=== PATIENT | female | born 1980 | race Caucasian/White ===

== ENCOUNTER 2016-08-12 22:31 | Emergency (ER) | payer MEDICAID ==
[2016-08-12] MEDS ORDERED: Ketorolac 60 MG/2 ML SDV IM ONE (23:36)
[2016-08-13] MEDS ORDERED: Ciprofloxacin in D5W 400 MG in Premix Bag 1 BAG IV ONE ×2 (01:51)
[2016-08-13] MEDS ORDERED: HYDROmorphone 1 MG/ML Syringe IVPUSH ONE (01:52)
[2016-08-13] MEDS ORDERED: diphenhydrAMINE 50 MG/ML SDV IVPUSH ONE ×2 (01:53→01:54)
[2016-08-13] MEDS ORDERED: LORazepam 2 MG/ML MDV IVPUSH ONE (01:53)
[2016-08-13] MEDS ORDERED: Lactated Ringers 1,000 ML IV SCH (02:00)
--- NOTE | 2016-08-13 03:22 | EDM.PDOC ---
ED HPI GI/ABDOMINAL - General Chief Complaint: Abdominal Pain Stated Complaint: ABD PAINS Time Seen by Provider: 08/12/16 23:09 Source: Reports: Patient History Limitations: Reports: No limitations - History of Present Illness INITIAL COMMENTS - FREE TEXT/NARRATIVE: History of present illness: [36-year-old female presenting with left flank pain and a little nausea. She also complains of some erythema of her skin which she attributes to being exposed to a bug bomb which was used to for an infestation of insects in her home. Her boyfriend presented with some similar complaints. Thoroughly reviewed her records and also [place] prescription monitoring site. She's had no fever or nausea or vomiting constipation diarrhea or dysuria ] Review of systems: As per history of present illness and below otherwise all systems reviewed and negative. Past medical history: As per history of present illness and as reviewed below otherwise noncontributory. Surgical history: As per history of present illness and as reviewed below otherwise noncontributory. Family history: As per history of present illness and as reviewed below otherwise noncontributory. Physical exam: She is dramatic and demanding and alleges she is in severe pain and spent much of her visit here crying immaturely. Her BMI is 44.9. She is difficult to assess HEENT: Atraumatic, normocephalic, pupils reactive, negative for conjunctival pallor or scleral icterus, mucous membranes moist, throat clear, neck supple, nontender, trachea midline. Lungs: Clear to auscultation, breath sounds equal bilaterally, chest nontender. Heart: S1S2, regular, negative for clicks, rubs, or JVD. Abdomen: Abdomen is rotund with tenderness to palpation in the left lower quadrant bowel sounds are present. Pelvis: Stable nontender. Genitourinary: Deferred. Rectal: Deferred. Extremities: Atraumatic, negative for cords or calf pain. Neurovascular unremarkable. Neuro: Awake, alert, oriented. Exam nonfocal. Diagnostics: [She was thoroughly worked up with CBC complete metabolic panel UA and abdominal pelvic CT. The abdominal pelvic CT was normal urinalysis suggests a urinary tract infection. This was cultured] Therapeutics: [She received many medications to try to control her pain. This included Toradol Benadryl Ativan Dilaudid and IV fluids. She was also given IV Cipro. She finally fell asleep and when aroused her she finally agreed to go home. She is on many medications and needs to go home and continue her meds.] Impression: [Left lower quadrant abdominal pain of uncertain etiology] Plan: [I'm advising her to followup with her primary doctor if her pain persists] Definitive disposition and diagnosis as appropriate pending reevaluation and review of above. - Related Data Allergies/ADRs: Allergies Allergy/AdvReac Type Severity Reaction Status Date / Time guaifenesin [From Robitussin] Allergy Intermediate Hives Verified 06/01/16 16:00 ibuprofen Allergy Intermediate Hives Verified 06/01/16 16:00 naproxen Allergy Intermediate Hives Verified 06/01/16 16:00 hydrocodone Allergy Itching Verified 06/01/16 16:00 gabapentin AdvReac Nausea and Verified 06/01/16 16:00 Vomiting Home Meds: Home Meds ALPRAZolam [Xanax] 0.5 mg PO TID 05/17/15 [History] Eszopiclone 1 mg PO BEDTIME 05/17/15 [History] rOPINIRole HCl [Ropinirole HCl] 1 tab PO TID 05/17/15 [History] Cyclobenzaprine [Flexeril] 10 mg PO TID 11/30/15 [History] Pregabalin [Lyrica] 75 mg PO BEDTIME 11/30/15 [History] Ramelteon [Rozerem] 16 mg PO BEDTIME PRN 11/30/15 [History] DULoxetine HCl [Duloxetine HCl] 90 mg PO DAILY 03/06/16 [History] Prazosin [Minpress] 3 mg PO BEDTIME 03/06/16 [History] Albuterol Sulfate [Proair Hfa] 2 inhalation IH Q6H PRN 04/03/16 [History] Lisdexamfetamine [Vyvanse] 70 mg PO DAILY 04/03/16 [History] Past Medical History HEENT History: Reports: Impaired vision Respiratory History: Reports: Asthma, Pneumonia, recurrent Genitourinary History: Reports: UTI, recurrent 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: , 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 , 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 Other OB/BYN History: states 15 pregnancies 4 live children Musculoskeletal History: Reports: Fibromyalgia, Osteoarthritis, Other (see below ) Other Musculoskeletal History: chronic L knee, degenerative bone disease Neurological History: Reports: Concussion, Head trauma, Migraines Psychiatric History: Reports: Anxiety, Depression, Emotional problems, Learning disability, Mood swings, Panic attack, Suicidal ideation, Other (see below) Other Psychiatric History: bulemic Endocrine/Metabolic History: Reports: Obesity/BMI 30+, Other (see below) Other Endocrine/Metabolic History: Hypoglycemic Hematologic History: Reports: Bleeding disorder - Infectious Disease History Infectious Disease History: Reports: Chicken pox - Past Surgical History Female Surgical History: Reports: D&C, Tubal ligation Other Musculoskeletal Surgeries/Procedures:: Knee surgery, ankle surgery, l wrist Social & Family History - Family History Psychiatric: Reports: ADHD - Tobacco Use Smoking Status *Q: Current Some Day Smoker Years of Tobacco use: 10 Packs/Tins Daily: 0.2 Used Tobacco, but Quit: Yes Month Tobacco Last Used: april Second Hand Smoke Exposure: No - Caffeine Use Caffeine Use: Reports: None - Alcohol Use Days Per Week of Alcohol Use: 0 - Recreational Drug Use Recreational Drug Use: No Drug Use in Last 12 Months: Yes Recreational Drug Type: Reports: Marijuana/Hashish ED ROS GENERAL - Review of Systems Review Of Systems: ROS reveals no pertinent complaints other than HPI. ED EXAM, GI/ABD - Physical Exam Exam: See Below Course - Vital Signs Last Recorded V/S: Last Vital Signs Temp 36.5 C 08/12/16 22:49 Pulse 69 08/13/16 01:46 Resp 16 08/13/16 01:46 BP 124/71 08/13/16 01:46 Pulse Ox 97 08/13/16 01:46 - Orders/Labs/Meds Orders: Active Orders 24 hr Category Date Time Status Abdomen Pelvis wo Cont [CT] Stat Exams 08/12/16 23:37 Taken CULTURE URINE [RM] Stat Lab 08/13/16 01:50 Uncollected Lactated Ringers [Ringers, Lactated] 1,000 ml Med 08/13/16 02:00 Active IV ASDIRECTED Medication Orders Lactated Ringer's (Ringers, Lactated) 1,000 mls @ 500 mls/hr IV ASDIRECTED TAYA Last Admin: 08/13/16 02:13 Dose: 500 mls/hr Labs: Laboratory Tests 08/12/16 08/12/16 08/13/16 Range/Units 23:24 23:24 01:29 WBC 10.2 (4.5-11.0) K/uL RBC 4.21 (3.30-5.50) M/uL Hgb 12.8 (12.0-15.0) g/dL Hct 38.6 (36.0-48.0) % MCV 92 (80-98) fL MCH 30 (27-31) pg MCHC 33 (32-36) % Plt Count 250 (150-400) K/uL Neut % (Auto) 65 (36-66) % Lymph % (Auto) 27 (24-44) % Alexander % (Auto) 7 H (2-6) % Eos % (Auto) 1 L (2-4) % Baso % (Auto) 1 (0-1) % Sodium 140 (140-148) mmol/L Potassium 3.2 L (3.6-5.2) mmol/L Chloride 102 (100-108) mmol/L Carbon Dioxide 29 (21-32) mmol/L Anion Gap 12.2 (5.0-14.0) mmol/L BUN 20 H (7-18) mg/dL Creatinine 0.9 (0.6-1.0) mg/dL Est Cr Clr Drug Dosing 61.47 mL/min Estimated GFR (MDRD) > 60 (>60) Glucose 89 (74-106) mg/dL Calcium 8.4 L (8.5-10.1) mg/dL Total Bilirubin 0.8 D (0.2-1.0) mg/dL AST 13 L (15-37) U/L ALT 23 (12-78) U/L Alkaline Phosphatase 79 (46-116) U/L C-Reactive Protein 0.29 (0.0-0.3) mg/dL Total Protein 7.7 (6.4-8.2) g/dL Albumin 3.8 (3.4-5.0) g/dL Globulin 3.9 H (2.3-3.5) g/dL Albumin/Globulin Ratio 1.0 L (1.2-2.2) Amylase 43 (25-115) U/L Lipase 110 (73-393) U/L Urine Color Yellow Urine Appearance Cloudy Urine pH 5.0 (4.5-8.0) Ur Specific [place] 1.030 (1.008-1.030) Urine Protein Negative (NEGATIVE) mg/dL Urine Glucose (UA) 250 H (NEGATIVE) mg/dL Urine Ketones 50 H (NEGATIVE) mg/dL Urine Occult Blood Negative (NEGATIVE) Urine Nitrite Negative (NEGATIVE) Urine Bilirubin Negative (NEGATIVE) Urine Urobilinogen Normal (NORMAL) mg/dL Ur Leukocyte Esterase Moderate (NEGATIVE) Urine RBC 0-5 (0-5) Urine WBC 10-20 H (0-5) Ur Epithelial Cells Moderate Amorphous Sediment Not seen Urine Bacteria Many Urine Mucus Moderate Meds: Medications Generic Name Dose Route Start Last Admin Trade Name Freq PRN Reason Stop Dose Admin Lactated Ringer's 1,000 mls @ 500 mls/hr 08/13/16 02:00 08/13/16 02:13 Ringers, Lactated IV 500 mls/hr ASDIRECTED TAYA Administration Discontinued Medications Generic Name Dose Route Start Last Admin Trade Name Freq PRN Reason Stop Dose Admin Diphenhydramine HCl 50 mg 08/13/16 01:53 Benadryl IVPUSH 08/13/16 01:54 ONETIME ONE Diphenhydramine HCl 25 mg 08/13/16 01:54 08/13/16 02:24 Benadryl IVPUSH 08/13/16 01:55 25 mg ONETIME ONE Administration Hydromorphone HCl 1 mg 08/13/16 01:52 08/13/16 02:28 Dilaudid IVPUSH 08/13/16 01:53 1 mg ONETIME ONE Administration Ciprofloxacin/Dextrose 400 mg/ 200 mls @ 200 mls/hr 08/13/16 01:51 08/13/16 02:15 Premix IV 08/13/16 02:50 200 mls/hr ONETIME ONE Administration Ketorolac Tromethamine 60 mg 08/12/16 23:36 08/12/16 23:42 Toradol IM 08/12/16 23:37 60 mg ONETIME ONE Administration Lorazepam 1 mg 08/13/16 01:53 08/13/16 02:17 Ativan IVPUSH 08/13/16 01:54 1 mg ONETIME ONE Administration Departure - Departure Time of Disposition: 03:22 Disposition: Home, Self-Care 01 Condition: good Clinical Impression: Left lower quadrant abdominal pain of unknown etiology Forms: ED Department Discharge Additional Instructions: Please followup with your primary doctor if her pain and other problems persist. Continue your current medications - My Orders Last 24 Hours: My Active Orders 08/12/16 23:37 Abdomen Pelvis wo Cont [CT] Stat 08/13/16 01:50 CULTURE URINE [RM] Stat 08/13/16 02:00 Lactated Ringers [Ringers, Lactated] 1,000 ml IV ASDIRECTED - Assessment/Plan Last 24 Hours: My Active Orders 08/12/16 23:37 Abdomen Pelvis wo Cont [CT] Stat 08/13/16 01:50 CULTURE URINE [RM] Stat 08/13/16 02:00 Lactated Ringers [Ringers, Lactated] 1,000 ml IV ASDIRECTED
[2016-08-13 03:58] VITALS: BP 117/79
== END 2016-08-13 03:36 | disposition home or self-care (01) ==
LOC: JP.ED 22:31
DX: R10.32 Left lower quadrant pain (principal); J45.909 Unspecified asthma, uncomplicated; F41.0 Panic disorder [episodic paroxysmal anxiety]; F32.9 Major depressive disorder, single episode, unspecified; F17.210 Nicotine dependence, cigarettes, uncomplicated; E66.9 Obesity, unspecified; Z68.41 Body mass index [BMI] 40.0-44.9, adult; Z98.890 Other specified postprocedural states; Z98.51 Tubal ligation status; Z79.899 Other long term (current) drug therapy; Z88.5 Allergy status to narcotic agent; Z88.8 Allergy status to other drugs, medicaments and biological substances
CPT/HCPCS: 36415; 74176; 80053; 81001; 82150; 83690; 85025; 86140; 96365; 96372; 96375; 99284; J0744; J1170; J1200; J1885; J2060; J7120

== ENCOUNTER 2016-12-05 17:02 | Emergency (ER) | payer MEDICAID ==
[2016-12-05 17:40] VITALS: BP 146/97
[2016-12-05] MEDS ORDERED: Acetaminophen 500 MG Tab PO ONE (18:12)
--- NOTE | 2016-12-05 18:18 | EDM.PDOC ---
ED HPI GENERAL MEDICAL PROBLEM - General Chief Complaint: Upper Extremity Injury/Pain Stated Complaint: R HAND INJURY Time Seen by Provider: 12/05/16 18:10 Source of Information: Reports: Patient, Old Records History Limitations: Reports: No Limitations - History of Present Illness INITIAL COMMENTS - FREE TEXT/NARRATIVE: 36 yo female hit a wall roughly an hour ago with her R hand. Now has pain to the knuckles of that hand. No tx prior to arrival. 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: Other (see below) (none) Right Hand Pain Score (Numeric/FACES): 7 - Related Data Allergies Allergy/AdvReac Type Severity Reaction Status Date / Time guaifenesin [From Robitussin] Allergy Intermediate Hives Verified 12/05/16 17:44 ibuprofen Allergy Intermediate Hives Verified 12/05/16 17:44 naproxen Allergy Intermediate Hives Verified 12/05/16 17:44 hydrocodone Allergy Itching Verified 12/05/16 17:44 gabapentin AdvReac Nausea and Verified 12/05/16 17:44 Vomiting Home Meds: Home Meds ALPRAZolam [Xanax] 0.5 mg PO TID 05/17/15 [History] Eszopiclone 1 mg PO BEDTIME 05/17/15 [History] rOPINIRole HCl [Ropinirole HCl] 1 tab PO TID 05/17/15 [History] Cyclobenzaprine [Flexeril] 10 mg PO TID 11/30/15 [History] Pregabalin [Lyrica] 75 mg PO BEDTIME 11/30/15 [History] Ramelteon [Rozerem] 16 mg PO BEDTIME PRN 11/30/15 [History] DULoxetine HCl [Duloxetine HCl] 90 mg PO DAILY 03/06/16 [History] Prazosin [Minpress] 3 mg PO BEDTIME 03/06/16 [History] Albuterol Sulfate [Proair Hfa] 2 inhalation IH Q6H PRN 04/03/16 [History] Lisdexamfetamine [Vyvanse] 70 mg PO DAILY 04/03/16 [History] Past Medical History HEENT History: Reports: Impaired Vision Respiratory History: Reports: Asthma, Pneumonia, Recurrent Genitourinary History: Reports: UTI, Recurrent 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: , 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 , 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 Other OB/BYN History: states 15 pregnancies 4 live children Musculoskeletal History: Reports: Fibromyalgia, Osteoarthritis, Other (See Below ) Other Musculoskeletal History: chronic L knee, degenerative bone disease Neurological History: Reports: Concussion, Head Trauma, Migraines Psychiatric History: Reports: Anxiety, Depression, Emotional Problems, Learning Disability, Mood Swings, Panic Attack, Suicidal Ideation, Other (See Below) Other Psychiatric History: bulemic Endocrine/Metabolic History: Reports: Obesity/BMI 30+, Other (See Below) Other Endocrine/Metabolic History: Hypoglycemic Hematologic History: Reports: Bleeding Disorder - Infectious Disease History Infectious Disease History: Reports: Chicken Pox - Past Surgical History Female Surgical History: Reports: D&C, Tubal Ligation Social & Family History - Family History Psychiatric: Reports: ADHD - Tobacco Use Smoking Status *Q: Current Every Day Smoker Years of Tobacco use: 24 Packs/Tins Daily: 0.2 Used Tobacco, but Quit: No Month Tobacco Last Used: april Second Hand Smoke Exposure: Yes - Caffeine Use Caffeine Use: Reports: Soda - Alcohol Use Days Per Week of Alcohol Use: 0 - Recreational Drug Use Recreational Drug Use: No Drug Use in Last 12 Months: Yes Recreational Drug Type: Reports: Marijuana/Hashish Review of Systems - Review of Systems Review Of Systems: See Below Constitutional: Reports: No Symptoms Musculoskeletal: Reports: Joint Pain, Joint Swelling, Other (3rd and 5th MC joints dorsally are slightly swollen and ecchymotic. No finger alignment anomalies with flexion at the affected joints. ) Skin: Reports: Bruising (Knuckles 3 and 5 of that R hand.) Neurological: Reports: No Symptoms ED EXAM, GENERAL - Physical Exam Exam: See Below Exam Limited By: No Limitations General Appearance: Alert, WD/WN, No Apparent Distress, Obese Extremities: Other (R hand full ROM. Skin intact. MC joints dorsally of 3rd and 5th joints are ecchymotic. ). No: Limited Range of Motion Neurological: Alert, Oriented, CN II-XII Intact, Normal Cognition, No Motor/ Sensory Deficits Psychiatric: Normal Affect, Normal Mood Course - Vital Signs Text/Narrative:: acetaminophen 1000 mg po R hand [id number] Last Recorded V/S: Last Vital Signs Temp 36.2 C 12/05/16 17:49 Pulse 86 12/05/16 17:49 Resp 16 12/05/16 17:49 BP 146/97 H 12/05/16 17:49 Pulse Ox 93 L 12/05/16 17:49 - Orders/Labs/Meds Orders: Active Orders 24 hr Category Date Time Status Hand Comp Min 3V Rt [CR] Stat Exams 12/05/16 18:13 Taken Meds: Medications Discontinued Medications Generic Name Dose Route Start Last Admin Trade Name Shashiq PRN Reason Stop Dose Admin Acetaminophen 1,000 mg 12/05/16 18:12 12/05/16 18:49 Tylenol Extra Strength PO 12/05/16 18:13 1,000 mg ONETIME ONE Administration Departure - Departure Time of Disposition: 19:15 Disposition: Home, Self-Care 01 Condition: Good Clinical Impression: Contusion of right hand Qualifiers: Encounter type: initial encounter Qualified Code(s): S60.221A - Contusion of right hand, initial encounter - Discharge Information Forms: ED Department Discharge - My Orders Last 24 Hours: My Active Orders 12/05/16 18:13 Hand Comp Min 3V Rt [CR] Stat - Assessment/Plan Last 24 Hours: My Active Orders 12/05/16 18:13 Hand Comp Min 3V Rt [CR] Stat
--- NOTE | 2016-12-06 09:38 | CR ---
Hand Comp Min 3V Rt FINDINGS: There is normal alignment. There are no fractures or posttraumatic findings. There are no significant degenerative changes. The soft tissues are unremarkable. IMPRESSION: Negative exam.
== END 2016-12-05 19:28 | disposition home or self-care (01) ==
LOC: JP.ED 17:02
DX: S60.221A Contusion of right hand, initial encounter (principal); J45.909 Unspecified asthma, uncomplicated; M19.90 Unspecified osteoarthritis, unspecified site; F41.9 Anxiety disorder, unspecified; F17.210 Nicotine dependence, cigarettes, uncomplicated; F32.9 Major depressive disorder, single episode, unspecified; E66.9 Obesity, unspecified; G43.909 Migraine, unspecified, not intractable, without status migrainosus; Z98.51 Tubal ligation status; Z87.01 Personal history of pneumonia (recurrent); Z79.899 Other long term (current) drug therapy; Z88.6 Allergy status to analgesic agent; Z88.5 Allergy status to narcotic agent; Z88.8 Allergy status to other drugs, medicaments and biological substances; W22.8XXA Striking against or struck by other objects, initial encounter
CPT/HCPCS: 73130; 99284; A9270

== ENCOUNTER 2017-01-08 01:33 | Emergency (ER) | payer MEDICAID ==
[2017-01-08 01:49] VITALS: BP 139/97
--- NOTE | 2017-01-08 02:20 | EDM.PDOC ---
ED HPI GENERAL MEDICAL PROBLEM - General Chief Complaint: Lower Extremity Injury/Pain Stated Complaint: RT KNEE AND BIG TOE HURT VERY BAD Time Seen by Provider: 01/08/17 02:17 Source of Information: Reports: Patient History Limitations: Reports: No Limitations - History of Present Illness INITIAL COMMENTS - FREE TEXT/NARRATIVE: This patient complains of anterior right knee pain. It's been going on all day long. She denies any trauma. The pain is in the area inferior to the right patella and just to the medial side of the midline. She says it hurts to bear weight. She walked 4 blocks coming to the [facility]. She also complains of a area to the ungual margin of her right great toenail that is keratinocyte but has turned black within the last day. She says it hurts very bad and even to put a sock on her foot is very painful right toe and right knee Pain Score (Numeric/FACES): 8 - Related Data Allergies Allergy/AdvReac Type Severity Reaction Status Date / Time guaifenesin [From Robitussin] Allergy Intermediate Hives Verified 01/08/17 01:49 ibuprofen Allergy Intermediate Hives Verified 01/08/17 01:49 naproxen Allergy Intermediate Hives Verified 01/08/17 01:49 hydrocodone Allergy Itching Verified 01/08/17 01:49 gabapentin AdvReac Nausea and Verified 01/08/17 01:49 Vomiting Home Meds: Home Meds ALPRAZolam [Xanax] 0.5 mg PO TID 05/17/15 [History] Eszopiclone 1 mg PO BEDTIME 05/17/15 [History] rOPINIRole HCl [Ropinirole HCl] 3 tab PO BEDTIME 05/17/15 [History] Cyclobenzaprine [Flexeril] 10 mg PO TID 11/30/15 [History] Pregabalin [Lyrica] 75 mg PO BEDTIME 11/30/15 [History] Ramelteon [Rozerem] 8 mg PO BEDTIME PRN 11/30/15 [History] DULoxetine HCl [Duloxetine HCl] 90 mg PO DAILY 03/06/16 [History] Prazosin [Minpress] 3 mg PO BEDTIME 03/06/16 [History] Lisdexamfetamine [Vyvanse] 70 mg PO DAILY 11/21/16 [History] Cyanocobalamin (Vitamin B-12) [B-12] 1,000 mcg PO DAILY 01/08/17 [History] Past Medical History HEENT History: Reports: Impaired Vision Respiratory History: Reports: Asthma, Pneumonia, Recurrent Genitourinary History: Reports: UTI, Recurrent 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: , 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 , 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 Other OB/BYN History: states 15 pregnancies 4 live children Musculoskeletal History: Reports: Fibromyalgia, Osteoarthritis, Other (See Below ) Other Musculoskeletal History: chronic L knee, degenerative bone disease Neurological History: Reports: Concussion, Head Trauma, Migraines Psychiatric History: Reports: Anxiety, Depression, Eating Disorders, Emotional Problems, Learning Disability, Mood Swings, Panic Attack, Suicidal Ideation, Other (See Below) Other Psychiatric History: bulemic Endocrine/Metabolic History: Reports: Obesity/BMI 30+, Other (See Below) Other Endocrine/Metabolic History: Hypoglycemic Hematologic History: Reports: Bleeding Disorder Dermatologic History: Reports: None - Infectious Disease History Infectious Disease History: Reports: Chicken Pox - Past Surgical History HEENT Surgical History: Reports: None Respiratory Surgical History: Reports: None Female Surgical History: Reports: D&C, Tubal Ligation Neurological Surgical History: Reports: None Musculoskeletal Surgical History: Reports: Arthroscopic Knee Social & Family History - Family History Psychiatric: Reports: ADHD - Tobacco Use Smoking Status *Q: Current Every Day Smoker Years of Tobacco use: 19 Packs/Tins Daily: 0.2 Used Tobacco, but Quit: No Month Tobacco Last Used: april Second Hand Smoke Exposure: Yes - Caffeine Use Caffeine Use: Reports: Soda - Alcohol Use Days Per Week of Alcohol Use: 0 - Recreational Drug Use Recreational Drug Use: No Drug Use in Last 12 Months: Yes Recreational Drug Type: Reports: Marijuana/Hashish Review of Systems - Review of Systems Review Of Systems: ROS reveals no pertinent complaints other than HPI. ED EXAM, GENERAL - Physical Exam Exam: See Below Exam Limited By: No Limitations General Appearance: Alert, WD/WN Eye Exam: Bilateral Eye: Normal Inspection Extremities: Other (there is no swelling to the right knee. There is some mild tenderness along the medial joint line anteriorly. There is good range of motion of the knee. On the right great toe the nail shows a verrucous looking lesion to the medial margin of the base of the nail. It looks like it has been slightly traumatized at the base of it appears to be black. That may be dried blood or could be actually black-looking tissue. This needs to be biopsied. It appears that any manipulation of this lesion is painful patient) Course - Vital Signs Last Recorded V/S: Last Vital Signs Temp 36.2 C 01/08/17 01:45 Pulse 91 01/08/17 01:45 Resp 19 01/08/17 01:45 BP 139/97 H 01/08/17 01:45 Pulse Ox 95 01/08/17 01:45 Departure - Departure Time of Disposition: 02:17 Disposition: Home, Self-Care 01 Condition: Fair Clinical Impression: Anterior knee pain, Verrucous skin lesion - Discharge Information Instructions: Knee Pain, [id number] Referrals: Dewey Hanna PA-C [Primary Care Provider] - Forms: ED Department Discharge Additional Instructions: Use the Fitz wrap for comfort. Elevate your knee and apply either ice or heat as needed. Use Tylenol and or ibuprofen for pain. The warty looking area on your toe probably needs a biopsy so you're being referred to the surgery clinic. You might also need to go to the senior officer but probably general surgery can handle this.
== END 2017-01-08 02:31 | disposition home or self-care (01) ==
LOC: JP.ED 01:33
DX: M25.561 Pain in right knee (principal); B07.9 Viral wart, unspecified; J45.909 Unspecified asthma, uncomplicated; M19.90 Unspecified osteoarthritis, unspecified site; F32.9 Major depressive disorder, single episode, unspecified; F41.0 Panic disorder [episodic paroxysmal anxiety]; F17.210 Nicotine dependence, cigarettes, uncomplicated; E66.9 Obesity, unspecified; Z68.42 Body mass index [BMI] 45.0-49.9, adult; Z87.440 Personal history of urinary (tract) infections; Z98.51 Tubal ligation status; Z98.890 Other specified postprocedural states; Z79.899 Other long term (current) drug therapy; Z88.5 Allergy status to narcotic agent; Z88.8 Allergy status to other drugs, medicaments and biological substances
CPT/HCPCS: 99283

== ENCOUNTER 2017-04-18 19:10 | Emergency (ER) | payer MEDICAID ==
--- NOTE | 2017-04-18 19:51 | EDM.PDOC ---
ED HPI GENERAL MEDICAL PROBLEM - General Chief Complaint: Respiratory Problem Stated Complaint: SHORTNESS OF BREATH Time Seen by Provider: 04/18/17 19:50 Source of Information: Reports: Patient History Limitations: Reports: No Limitations - History of Present Illness INITIAL COMMENTS - FREE TEXT/NARRATIVE: pt arrived with a history of a marked cough. She has been ill for 1 week. She has been coughing markedly and she is not raising any sputum. She does not have a temp at this time but she is coughing markedly. Onset: Gradual, Other ( She has been ill for 1 week. ) Duration: Day(s): Location: Reports: Chest Associated Symptoms: Reports: Cough, Shortness of Breath Frontal Head Pain Score (Numeric/FACES): 6 - Related Data Allergies Allergy/AdvReac Type Severity Reaction Status Date / Time guaifenesin [From Robitussin] Allergy Intermediate Hives Verified 04/18/17 20:07 ibuprofen Allergy Intermediate Hives Verified 04/18/17 20:07 naproxen Allergy Intermediate Hives Verified 04/18/17 20:07 hydrocodone Allergy Itching Verified 04/18/17 20:07 gabapentin AdvReac Nausea and Verified 04/18/17 20:07 Vomiting Home Meds: Home Meds ALPRAZolam [Xanax] 0.5 mg PO TID PRN 05/17/15 [History] Eszopiclone 1 mg PO BEDTIME 05/17/15 [History] rOPINIRole HCl [Ropinirole HCl] 3 tab PO BEDTIME 05/17/15 [History] Cyclobenzaprine [Flexeril] 10 mg PO TID PRN 11/30/15 [History] Ramelteon [Rozerem] 8 mg PO BEDTIME PRN 11/30/15 [History] DULoxetine HCl [Duloxetine HCl] 60 mg PO DAILY 03/06/16 [History] Prazosin [Minpress] 3 mg PO BEDTIME 03/06/16 [History] Lisdexamfetamine [Vyvanse] 70 mg PO DAILY 04/03/16 [History] Cyanocobalamin (Vitamin B-12) [B-12] 1,000 mcg PO DAILY 01/08/17 [History] lamoTRIgine [lamoTRIgine] 200 mg PO DAILY 04/18/17 [History] Past Medical History HEENT History: Reports: Impaired Vision Respiratory History: Reports: Asthma, Pneumonia, Recurrent Genitourinary History: Reports: UTI, Recurrent 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: , 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 , 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 Other OB/BYN History: states 15 pregnancies 4 live children Musculoskeletal History: Reports: Fibromyalgia, Osteoarthritis, Other (See Below ) Other Musculoskeletal History: chronic L knee, degenerative bone disease Neurological History: Reports: Concussion, Head Trauma, Migraines Psychiatric History: Reports: Anxiety, Depression, Eating Disorders, Emotional Problems, Learning Disability, Mood Swings, Panic Attack, Suicidal Ideation, Other (See Below) Other Psychiatric History: bulemic Endocrine/Metabolic History: Reports: Obesity/BMI 30+, Other (See Below) Other Endocrine/Metabolic History: Hypoglycemic Hematologic History: Reports: Bleeding Disorder Dermatologic History: Reports: None - Infectious Disease History Infectious Disease History: Reports: Chicken Pox - Past Surgical History HEENT Surgical History: Reports: None Respiratory Surgical History: Reports: None Female Surgical History: Reports: D&C, Tubal Ligation Neurological Surgical History: Reports: None Musculoskeletal Surgical History: Reports: Arthroscopic Knee Social & Family History - Family History Psychiatric: Reports: ADHD - Tobacco Use Smoking Status *Q: Current Every Day Smoker Years of Tobacco use: 19 Packs/Tins Daily: 0.2 Used Tobacco, but Quit: No Month Tobacco Last Used: april Second Hand Smoke Exposure: Yes - Caffeine Use Caffeine Use: Reports: Soda - Alcohol Use Days Per Week of Alcohol Use: 0 - Recreational Drug Use Recreational Drug Use: No Drug Use in Last 12 Months: Yes Recreational Drug Type: Reports: Marijuana/Hashish ED ROS GENERAL - Review of Systems Review Of Systems: See Below Constitutional: Reports: Weakness, Fatigue HEENT: Reports: No Symptoms Respiratory: Reports: Shortness of Breath, Wheezing Cardiovascular: Reports: No Symptoms Endocrine: Reports: No Symptoms GI/Abdominal: Reports: No Symptoms : Reports: No Symptoms Musculoskeletal: Reports: No Symptoms Skin: Reports: No Symptoms ED EXAM, GENERAL - Physical Exam Exam: See Below Free Text/Narrative:: pt arrived with a marked cough, rib pain from coughing. She has pain in hr head because of all of the coughing. Exam Limited By: No Limitations General Appearance: Alert, Anxious, Moderate Distress Ears: Normal TMs Nose: Normal Inspection Throat/Mouth: Normal Inspection Head: Atraumatic Neck: Normal Inspection Respiratory/Chest: Rhonchi, Wheezing Cardiovascular: Regular Rate, Rhythm, Tachycardia, Other ( bp is elevated. ) GI/Abdominal: Soft, Non-Tender (Female) Exam: Deferred Rectal (Female) Exam: Deferred Back Exam: Normal Inspection Extremities: Normal Inspection Neurological: Alert, Oriented, Normal Cognition Course - Vital Signs Last Recorded V/S: Last Vital Signs Temp 36.8 C 04/18/17 23:00 Pulse 116 H 04/18/17 23:00 Resp 16 04/18/17 23:00 BP 136/99 H 04/18/17 23:00 Pulse Ox 97 04/18/17 23:00 - Orders/Labs/Meds Labs: Laboratory Tests 04/18/17 04/18/17 Range/Units 20:03 20:03 WBC 14.2 H (4.5-11.0) K/uL RBC 4.34 (3.30-5.50) M/uL Hgb 13.3 (12.0-15.0) g/dL Hct 40.1 (36.0-48.0) % MCV 92 (80-98) fL MCH 31 (27-31) pg MCHC 33 (32-36) % Plt Count 278 (150-400) K/uL Neut % (Auto) 77 H (36-66) % Lymph % (Auto) 16 L (24-44) % [place] % (Auto) 5 (2-6) % Eos % (Auto) 1 L (2-4) % Baso % (Auto) 0 (0-1) % Sodium 139 L (140-148) mmol/L Potassium 3.8 (3.6-5.2) mmol/L Chloride 101 (100-108) mmol/L Carbon Dioxide 29 (21-32) mmol/L Anion Gap 12.8 (5.0-14.0) mmol/L BUN 10 (7-18) mg/dL Creatinine 0.9 (0.6-1.0) mg/dL Est Cr Clr Drug Dosing 61.47 mL/min Estimated GFR (MDRD) > 60 (>60) Glucose 99 (74-106) mg/dL Calcium 9.3 (8.5-10.1) mg/dL Meds: Medications Discontinued Medications Generic Name Dose Route Start Last Admin Trade Name Freq PRN Reason Stop Dose Admin Albuterol 2.5 mg 04/18/17 20:30 04/18/17 21:02 Proventil Neb Soln NEB 04/18/17 20:31 2.5 mg ONETIME ONE Administration Albuterol/Ipratropium 3 ml 04/18/17 22:26 04/18/17 23:01 Duoneb 3.0-0.5 Mg/3 Ml NEB 04/18/17 22:27 3 ml ONETIME ONE Administration Benzonatate 200 mg 04/18/17 22:25 04/18/17 23:00 Tessalon Perles PO 04/18/17 22:26 200 mg ONETIME ONE Administration Sodium Chloride 1,000 mls @ 999 mls/hr 04/18/17 21:30 04/18/17 21:55 Normal Saline IV 999 mls/hr ASDIRECTED TAYA Administration Ceftriaxone Sodium 1 gm/ 50 mls @ 100 mls/hr 04/18/17 21:39 04/18/17 21:58 Sodium Chloride IV 04/18/17 22:08 100 mls/hr ONETIME ONE Administration Ketorolac Tromethamine 30 mg 04/18/17 21:02 04/18/17 21:36 Toradol IVPUSH 04/18/17 21:03 30 mg ONETIME ONE Administration Lorazepam 0.5 mg 04/18/17 20:33 04/18/17 21:01 Ativan IVPUSH 04/18/17 20:34 0.5 mg ONETIME ONE Administration Methylprednisolone Sodium Succinate 125 mg 04/18/17 20:33 04/18/17 21:01 Solu-Medrol IVPUSH 04/18/17 20:34 125 mg ONETIME ONE Administration Prazosin HCl 3 mg 04/19/17 21:00 Minpress PO BEDTIME TAYA Sodium Chloride 10 ml 04/18/17 20:32 04/18/17 21:28 Saline Flush FLUSH 10 ml ASDIRECTED PRN Administration Keep Vein Open - Re-Assessments/Exams Free Text/Narrative Re-Assessment/Exam: 04/18/17 21:14 CHEST XRAY DID NOT REVEAL A PNEUMONIA. sHE HAD A WBC WHICH WAS MILDLY ELEVATED. SHE WAS GIVEN A NEB WITH SOME IMPROVEMENT. 04/18/17 21:15 04/18/17 21:3 W 04/21/17 07:44 pt was then given a second neg, iv solumedrol. She continued to cough but her chest did sound better. 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 motrin 600mg q6h as needed for pain.
[2017-04-18] MEDS ORDERED: Albuterol 0.083% 2.5 MG/3 ML Neb Soln NEB ONE (20:30)
[2017-04-18] MEDS ORDERED: Sodium Chloride 0.9% 10 ML Syringe FLUSH PRN (20:32)
[2017-04-18] MEDS ORDERED: methylPREDNISolone Sodium Succinate 125 MG/2 ML SDV IVPUSH ONE (20:33)
[2017-04-18] MEDS ORDERED: LORazepam 2 MG/ML MDV IVPUSH ONE (20:33)
[2017-04-18] MEDS ORDERED: Ketorolac 30 MG/ML SDV IVPUSH ONE (21:02)
[2017-04-18] MEDS ORDERED: Sodium Chloride 0.9% 1,000 ML IV SCH (21:30)
[2017-04-18] MEDS ORDERED: cefTRIAXone 1 GM in Sodium Chloride 0.9% 50 ML IV ONE (21:39)
[2017-04-18] MEDS ORDERED: Benzonatate 100 MG Cap PO ONE (22:25)
[2017-04-18] MEDS ORDERED: Albuterol/Ipratropium 3.0-0.5 MG/3 ML Neb Soln NEB ONE (22:26)
[2017-04-18 23:01] VITALS: BP 136/99
--- NOTE | 2017-04-19 08:43 | CR ---
Chest 1V Frontal INDICATION: cough, elevated wbc FINDINGS: Comparison 03/06/2016. No change. Negative AP portable chest x-ray.
[2017-04-19] MEDS ORDERED: Prazosin 1 MG Cap PO SCH (21:00)
== END 2017-04-18 23:41 | disposition home or self-care (01) ==
LOC: JP.ED 19:10
DX: J40 Bronchitis, not specified as acute or chronic (principal); J98.01 Acute bronchospasm; F32.9 Major depressive disorder, single episode, unspecified; F17.210 Nicotine dependence, cigarettes, uncomplicated; Z88.5 Allergy status to narcotic agent; Z88.6 Allergy status to analgesic agent; Z88.8 Allergy status to other drugs, medicaments and biological substances
CPT/HCPCS: 36415; 71010; 80048; 85025; 94640; 96361; 96365; 96375; 99284; A9270; J0696; J1885; J2060; J2930; J7040; J7050; J7620

== ENCOUNTER 2017-04-29 19:22 | Emergency (ER) | payer MEDICAID ==
[2017-04-29] MEDS ORDERED: Benzonatate 100 MG Cap PO ONE (19:58)
[2017-04-29] MEDS ORDERED: Racepinephrine 2.25% 0.5 ML Neb Soln NEB ONE (19:59)
--- NOTE | 2017-04-29 20:02 | EDM.PDOC ---
ED HPI GENERAL MEDICAL PROBLEM - General Chief Complaint: Respiratory Problem Stated Complaint: RESPIRATORY ILLNESS Time Seen by Provider: 04/29/17 19:38 Source of Information: Reports: Patient, Family, Old Records, RN Notes Reviewed History Limitations: Reports: No Limitations - History of Present Illness INITIAL COMMENTS - FREE TEXT/NARRATIVE: 36-year-old female presents to the emergency department today complaint of cough , she was evaluated in the emergency department last week felt to have bronchitis was treated with azithromycin, Robitussin with codeine which she has not used because of allergy concerns, 1 g Rocephin, Solu-Medrol, and albuterol. She feels she was doing quite well until 2 days prior to evaluation at which time cough progressively had gotten worse and started having more fevers - Related Data Allergies Allergy/AdvReac Type Severity Reaction Status Date / Time guaifenesin [From Robitussin] Allergy Intermediate Hives Verified 04/18/17 20:07 ibuprofen Allergy Intermediate Hives Verified 04/18/17 20:07 naproxen Allergy Intermediate Hives Verified 04/18/17 20:07 hydrocodone Allergy Itching Verified 04/18/17 20:07 gabapentin AdvReac Nausea and Verified 04/18/17 20:07 Vomiting Home Meds: Home Meds ALPRAZolam [Xanax] 0.5 mg PO TID PRN 05/17/15 [History] Eszopiclone 1 mg PO BEDTIME 05/17/15 [History] rOPINIRole HCl [Ropinirole HCl] 3 tab PO BEDTIME 05/17/15 [History] Cyclobenzaprine [Flexeril] 10 mg PO TID PRN 11/30/15 [History] Ramelteon [Rozerem] 8 mg PO BEDTIME PRN 11/30/15 [History] DULoxetine HCl [Duloxetine HCl] 60 mg PO DAILY 03/06/16 [History] Lisdexamfetamine [Vyvanse] 70 mg PO DAILY 04/03/16 [History] Cyanocobalamin (Vitamin B-12) [B-12] 1,000 mcg PO DAILY 01/08/17 [History] lamoTRIgine [lamoTRIgine] 200 mg PO DAILY 04/18/17 [History] Past Medical History HEENT History: Reports: Impaired Vision Respiratory History: Reports: Asthma, Bronchitis, Recurrent, Pneumonia, Recurrent Genitourinary History: Reports: UTI, Recurrent 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: , 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 , 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 Other OB/BYN History: states 15 pregnancies 4 live children Musculoskeletal History: Reports: Fibromyalgia, Osteoarthritis, Other (See Below ) Other Musculoskeletal History: chronic L knee, degenerative bone disease Neurological History: Reports: Concussion, Head Trauma, Migraines Psychiatric History: Reports: Anxiety, Depression, Eating Disorders, Emotional Problems, Learning Disability, Mood Swings, Panic Attack, Suicidal Ideation, Other (See Below) Other Psychiatric History: bulemic Endocrine/Metabolic History: Reports: Obesity/BMI 30+, Other (See Below) Other Endocrine/Metabolic History: Hypoglycemic Hematologic History: Reports: Bleeding Disorder Dermatologic History: Reports: None - Infectious Disease History Infectious Disease History: Reports: Chicken Pox - Past Surgical History HEENT Surgical History: Reports: None Respiratory Surgical History: Reports: None Female Surgical History: Reports: D&C, Tubal Ligation Neurological Surgical History: Reports: None Musculoskeletal Surgical History: Reports: Arthroscopic Knee Social & Family History - Family History Psychiatric: Reports: ADHD - Tobacco Use Smoking Status *Q: Never Smoker Years of Tobacco use: 19 Packs/Tins Daily: 0.2 Used Tobacco, but Quit: No Month Tobacco Last Used: april Second Hand Smoke Exposure: Yes - Caffeine Use Caffeine Use: Reports: Soda - Alcohol Use Days Per Week of Alcohol Use: 0 - Recreational Drug Use Recreational Drug Use: No Drug Use in Last 12 Months: Yes Recreational Drug Type: Reports: Marijuana/Hashish ED ROS GENERAL - Review of Systems Review Of Systems: See Below Constitutional: Reports: Fever, Chills HEENT: Reports: No Symptoms Respiratory: Reports: Shortness of Breath, Cough Cardiovascular: Reports: No Symptoms GI/Abdominal: Reports: No Symptoms : Reports: No Symptoms ED EXAM, GENERAL - Physical Exam Exam: See Below Exam Limited By: No Limitations General Appearance: Alert, WD/WN, No Apparent Distress Ears: Normal External Exam, Normal Canal, Hearing Grossly Normal, Normal TMs Nose: Normal Inspection, Normal Mucosa, No Blood Throat/Mouth: Normal Inspection, Normal Lips, Normal Teeth, Normal Gums, Normal Oropharynx, Normal Voice, No Airway Compromise Head: Atraumatic, Normocephalic Neck: Normal Inspection, Supple, Non-Tender, Full Range of Motion Respiratory/Chest: No Respiratory Distress, Normal Breath Sounds, Other (Cough) Cardiovascular: Regular Rate, Rhythm, No Murmur GI/Abdominal: Soft, Non-Tender Course - Vital Signs Last Recorded V/S: Last Vital Signs Temp 100.0 F 04/29/17 22:25 Pulse 113 H 04/29/17 22:25 Resp 16 04/29/17 22:25 BP 152/98 H 04/29/17 22:25 Pulse Ox 95 04/29/17 22:25 - Orders/Labs/Meds Orders: Active Orders 24 hr Category Date Time Status RT Aerosol Therapy [RC] ASDIRECTED Care 04/29/17 19:59 Active RT Aerosol Therapy [RC] ASDIRECTED Care 04/29/17 21:02 Active Chest 2V [CR] Urgent Exams 04/29/17 19:54 Taken Labs: Laboratory Tests 04/29/17 Range/Units 20:06 WBC 12.0 H (4.5-11.0) K/uL RBC 4.17 (3.30-5.50) M/uL Hgb 12.6 (12.0-15.0) g/dL Hct 38.6 (36.0-48.0) % MCV 93 (80-98) fL MCH 30 (27-31) pg MCHC 33 (32-36) % Plt Count 271 (150-400) K/uL Neut % (Auto) 82 H (36-66) % Lymph % (Auto) 10 L (24-44) % [place] % (Auto) 6 (2-6) % Eos % (Auto) 2 (2-4) % Baso % (Auto) 0 (0-1) % Meds: Medications Discontinued Medications Generic Name Dose Route Start Last Admin Trade Name Shashiq PRN Reason Stop Dose Admin Albuterol/Ipratropium 3 ml 04/29/17 21:01 04/29/17 21:15 Duoneb 3.0-0.5 Mg/3 Ml NEB 04/29/17 21:02 3 ml ONETIME ONE Administration Benzonatate 200 mg 04/29/17 19:58 04/29/17 20:06 Tessalon Perles PO 04/29/17 19:59 200 mg ONETIME ONE Administration Hydroxyzine HCl 100 mg 04/29/17 21:01 04/29/17 21:16 Vistaril IM 04/29/17 21:02 100 mg ONETIME ONE Administration Lidocaine HCl 5 ml 04/29/17 22:27 04/29/17 22:41 Xylocaine-Mpf 4% NEB 04/29/17 22:28 5 ml ONETIME ONE Administration Racepinephrine 0.5 ml 04/29/17 19:59 04/29/17 20:06 S-2 2.25% NEB 04/29/17 20:00 0.5 ml ONETIME ONE Administration Sodium Chloride Confirm 04/29/17 20:03 04/29/17 20:06 Sodium Chloride 0.9% Administered 04/29/17 20:04 3 ml Dose Administration 3 ml .ROUTE .STK-MED ONE Departure - Departure Time of Disposition: 23:24 Disposition: Home, Self-Care 01 Condition: Good Clinical Impression: Bronchospasm - Discharge Information Referrals: Dewey Hanna PA-C [Primary Care Provider] - Forms: ED Department Discharge Additional Instructions: Use the lidocaine nebulizer treatment as needed to help control cough symptoms take full course of prednisone, Please followup with your primary care provider in 3-5 days if not better, please call return to the emergency department with worsening of symptoms. - My Orders Last 24 Hours: My Active Orders 04/29/17 19:54 Chest 2V [CR] Urgent 04/29/17 19:59 RT Aerosol Therapy [RC] ASDIRECTED 04/29/17 21:02 RT Aerosol Therapy [RC] ASDIRECTED - Assessment/Plan Last 24 Hours: My Active Orders 04/29/17 19:54 Chest 2V [CR] Urgent 04/29/17 19:59 RT Aerosol Therapy [RC] ASDIRECTED 04/29/17 21:02 RT Aerosol Therapy [RC] ASDIRECTED Plan: Assessment Acuity = acute Site and laterality = bronchospasm Etiology = concern for underlying reactive airway disease Manifestations = cough Location of injury = Home Lab values = WBC elevated at 12.0 consistent with leukocytosis this is improved from prior ER visit status post antibiotic treatment Plan Discharged home prednisone 20 mg once a day for 5 days in combination with 4% lidocaine topical neb 3 times a day follow-up primary care 3-5 days for reevaluation This note was dictated using [employer] voice recognition software please call with any questions on syntax or katie.
[2017-04-29] MEDS ORDERED: Sodium Chloride 0.9% Inhalation Soln 3 ML Neb ONE (20:03)
[2017-04-29] MEDS ORDERED: hydrOXYzine HCl 100 MG/2 ML SDV IM ONE (21:01)
[2017-04-29] MEDS ORDERED: Albuterol/Ipratropium 3.0-0.5 MG/3 ML Neb Soln NEB ONE (21:01)
[2017-04-29 22:26] VITALS: BP 152/98
[2017-04-29] MEDS ORDERED: Lidocaine 4% 5 ML Amp NEB ONE (22:27)
--- NOTE | 2017-04-30 09:30 | CR ---
Chest 2V HISTORY: cough COMPARISON: 04/18/2017 FINDINGS: Lungs appear clear and normally aerated. Cardiomediastinal silhouette is within normal limits. No vas cular redistribution or pleural fluid can be seen. Bony structures and soft tissues are unremarkable. IMPRESSION: No acute chest abnormality or significant interval change is identified.
== END 2017-04-29 23:36 | disposition home or self-care (01) ==
LOC: JP.ED 19:22
DX: J98.01 Acute bronchospasm (principal); Z88.8 Allergy status to other drugs, medicaments and biological substances; Z79.899 Other long term (current) drug therapy
CPT/HCPCS: 36415; 71020; 85025; 87804; 94640; 96372; 99284; A9270; J3410; J7620

== ENCOUNTER 2017-06-12 21:39 | Emergency (ER) | payer MEDICAID ==
[2017-06-12 21:48] VITALS: BP 145/78
[2017-06-12] MEDS ORDERED: Ketorolac 60 MG/2 ML SDV IM ONE (21:56)
--- NOTE | 2017-06-12 22:03 | EDM.PDOC ---
ED HPI GENERAL MEDICAL PROBLEM - General Chief Complaint: Lower Extremity Injury/Pain Stated Complaint: FALL VIA NORTH Time Seen by Provider: 06/12/17 21:40 Source of Information: Reports: Patient, EMS History Limitations: Reports: No Limitations - History of Present Illness INITIAL COMMENTS - FREE TEXT/NARRATIVE: 36-year-old female was walking on snow and ice when she slipped falling onto her right knee. She has too much pain to stand up. An ambulance was called and she was brought in for evaluation. No other injury. Onset: Sudden Duration: Hour(s): (Within the last hour) Location: Reports: Lower Extremity, Right Worsens with: Reports: Other (Weightbearing), Movement Associated Symptoms: Reports: No Other Symptoms Right Knee Pain Score (Numeric/FACES): 8 - Related Data Allergies Allergy/AdvReac Type Severity Reaction Status Date / Time guaifenesin [From Robitussin] Allergy Intermediate Hives Verified 06/12/17 22:03 ibuprofen Allergy Intermediate Hives Verified 06/12/17 22:03 naproxen Allergy Intermediate Hives Verified 06/12/17 22:03 hydrocodone Allergy Itching Verified 06/12/17 22:03 gabapentin AdvReac Nausea and Verified 06/12/17 22:03 Vomiting Home Meds: Home Meds ALPRAZolam [Xanax] 0.5 mg PO TID PRN 05/17/15 [History] Eszopiclone 1 mg PO BEDTIME 05/17/15 [History] rOPINIRole HCl [Ropinirole HCl] 3 tab PO BEDTIME 05/17/15 [History] Cyclobenzaprine [Flexeril] 10 mg PO TID PRN 11/30/15 [History] Ramelteon [Rozerem] 8 mg PO BEDTIME PRN 11/30/15 [History] DULoxetine HCl [Duloxetine HCl] 60 mg PO DAILY 03/06/16 [History] Lisdexamfetamine [Vyvanse] 70 mg PO DAILY 04/03/16 [History] Cyanocobalamin (Vitamin B-12) [B-12] 1,000 mcg PO DAILY 01/08/17 [History] lamoTRIgine [lamoTRIgine] 200 mg PO DAILY 04/18/17 [History] Past Medical History HEENT History: Reports: Impaired Vision Respiratory History: Reports: Asthma, Bronchitis, Recurrent, Pneumonia, Recurrent Genitourinary History: Reports: UTI, Recurrent 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 Bilat knee pain Neurological History: Reports: Concussion, Head Trauma, Migraines Psychiatric History: Reports: Anxiety, Depression, Eating Disorders, Emotional Problems, Learning Disability, Mood Swings, Panic Attack, Suicidal Ideation, Other (See Below) Other Psychiatric History: bulemic Endocrine/Metabolic History: Reports: Obesity/BMI 30+, Other (See Below) Other Endocrine/Metabolic History: Hypoglycemic Hematologic History: Reports: Bleeding Disorder Dermatologic History: Reports: None - Infectious Disease History Infectious Disease History: Reports: Chicken Pox - Past Surgical History HEENT Surgical History: Reports: None Respiratory Surgical History: Reports: None Female Surgical History: Reports: D&C, Tubal Ligation Neurological Surgical History: Reports: None Musculoskeletal Surgical History: Reports: Arthroscopic Knee Social & Family History - Family History Psychiatric: Reports: ADHD - Tobacco Use Smoking Status *Q: Former Smoker Years of Tobacco use: 19 Packs/Tins Daily: 0.2 Used Tobacco, but Quit: Yes Month Tobacco Last Used: May Second Hand Smoke Exposure: Yes - Caffeine Use Caffeine Use: Reports: Soda - Alcohol Use Days Per Week of Alcohol Use: 0 - Recreational Drug Use Recreational Drug Use: No Drug Use in Last 12 Months: Yes Recreational Drug Type: Reports: Marijuana/Hashish Review of Systems - Review of Systems Review Of Systems: See Below Constitutional: Denies: Fever Respiratory: Denies: Shortness of Breath Cardiovascular: Denies: Chest Pain GI/Abdominal: Denies: Abdominal Pain Skin: Denies: Bruising, Erythema Neurological: Denies: Paresthesia ED EXAM, GENERAL - Physical Exam Exam: See Below Exam Limited By: No Limitations General Appearance: Alert, Anxious, Mild Distress (Acting very uncomfortable, tearful) Respiratory/Chest: No Respiratory Distress, Lungs Clear Extremities: Other (Knees are grossly symmetric. She is very tender over the proximal fibula but has no effusion, abrasion, ecchymosis or deformity.) Course - Vital Signs Last Recorded V/S: Last Vital Signs Temp 99.1 F 06/12/17 21:57 Pulse 102 H 06/12/17 21:57 Resp 16 06/12/17 21:57 BP 145/78 H 06/12/17 21:57 Pulse Ox 93 L 06/12/17 21:57 - Orders/Labs/Meds Orders: Active Orders 24 hr Category Date Time Status Knee 3V Rt [CR] Stat Exams 06/12/17 21:56 Taken Meds: Medications Discontinued Medications Generic Name Dose Route Start Last Admin Trade Name Pedrito PRN Reason Stop Dose Admin Ketorolac Tromethamine 60 mg 06/12/17 21:56 06/12/17 22:22 Toradol IM 06/12/17 21:57 60 mg ONETIME ONE Administration - Re-Assessments/Exams Free Text/Narrative Re-Assessment/Exam: 06/12/17 22:02 Patient was given 60 mg of IM Toradol and a right knee x-ray was taken. 06/12/17 22:28 Knee x-ray showed arthritis but no fracture. Patient was able to ambulate with assistance. A six-inch Fitz wrap was applied to the knee and she was given 10 additional doses of ketorolac to take 3 times a day. Increase activity as tolerated and recheck with orthopedics on if not improving satisfactorily. Departure - Departure Time of Disposition: 23:02 Disposition: Home, Self-Care 01 Condition: Good Clinical Impression: Contusion of knee, right Qualifiers: Encounter type: initial encounter Qualified Code(s): S80.01XA - Contusion of right knee, initial encounter - Discharge Information Instructions: Contusion Referrals: PCP,None [Primary Care Provider] - Forms: ED Department Discharge Care Plan Goals: Wrap knee for comfort, take the pain medication 3 times a day and increase activity as tolerated. Ice to the knee 20 minutes an hour for the first day or 2 may help. Recheck on with orthopedics if not improving satisfactorily. - My Orders Last 24 Hours: My Active Orders 06/12/17 21:56 Knee 3V Rt [CR] Stat - Assessment/Plan Last 24 Hours: My Active Orders 06/12/17 21:56 Knee 3V Rt [CR] Stat
--- NOTE | 2017-06-13 09:39 | CR ---
Knee 3V Rt HISTORY: Knee injury COMPARISON: 06/04/2017. FINDINGS: Moderate degenerative change medial compartment with joint space loss and marginal osteophy te formation. No fracture or effusion. No bony destructive process seen.
== END 2017-06-12 23:00 | disposition home or self-care (01) ==
LOC: JP.ED 21:39
DX: S80.01XA Contusion of right knee, initial encounter (principal); Z88.8 Allergy status to other drugs, medicaments and biological substances; Z88.5 Allergy status to narcotic agent; Z79.899 Other long term (current) drug therapy; Z87.891 Personal history of nicotine dependence; Z87.440 Personal history of urinary (tract) infections; W00.0XXA Fall on same level due to ice and snow, initial encounter
CPT/HCPCS: 73562; 96372; 99284; J1885

== ENCOUNTER 2017-07-18 21:08 | Emergency (ER) | payer MEDICAID ==
[2017-07-18 22:40] VITALS: BP 149/81
--- NOTE | 2017-07-18 23:49 | EDM.PDOC ---
ED HPI GENERAL MEDICAL PROBLEM - General Chief Complaint: Abdominal Pain Stated Complaint: R ABDOMINAL PAIN Time Seen by Provider: 07/18/17 21:32 Source of Information: Reports: Patient (This is reasonable) History Limitations: Reports: No Limitations - History of Present Illness INITIAL COMMENTS - FREE TEXT/NARRATIVE: Abdominal pain: This is a 37-year-old female presents to the emergency room with her female friend, reports right-sided abdominal pain since last night greater than 24 hours. The pain is constant throbbing, she is unable to tolerate it any longer and comes to ER for evaluation. She's eaten 2 meals today last meal at [employer] which has not changed her abdominal pain, does not promote any nausea, vomiting or diarrhea. Denies any injury, exercise, or activity that could injure her abdominal area. Onset Date: 07/17/17 Duration: Constant Location: Reports: Abdomen Quality: Reports: Pressure, Stabbing Severity: Moderate Improves with: Reports: None Worsens with: Reports: None Associated Symptoms: Reports: No Other Symptoms Right Upper Abdomen Pain Score (Numeric/FACES): 8 - Related Data Allergies Allergy/AdvReac Type Severity Reaction Status Date / Time guaifenesin [From Robitussin] Allergy Intermediate Hives Verified 07/18/17 21:55 ibuprofen Allergy Intermediate Hives Verified 07/18/17 21:55 naproxen Allergy Intermediate Hives Verified 07/18/17 21:55 hydrocodone Allergy Itching Verified 07/18/17 21:55 gabapentin AdvReac Nausea and Verified 07/18/17 21:55 Vomiting Home Meds: Home Meds ALPRAZolam [Xanax] 0.5 mg PO TID PRN 05/17/15 [History] Eszopiclone 1 mg PO BEDTIME 05/17/15 [History] rOPINIRole HCl [Ropinirole HCl] 3 tab PO BEDTIME 05/17/15 [History] Cyclobenzaprine [Flexeril] 10 mg PO TID PRN 11/30/15 [History] Ramelteon [Rozerem] 8 mg PO BEDTIME PRN 11/30/15 [History] DULoxetine HCl [Duloxetine HCl] 60 mg PO DAILY 03/06/16 [History] Lisdexamfetamine [Vyvanse] 70 mg PO DAILY 04/03/16 [History] Cyanocobalamin (Vitamin B-12) [B-12] 1,000 mcg PO DAILY 01/08/17 [History] lamoTRIgine [lamoTRIgine] 200 mg PO DAILY 04/18/17 [History] Past Medical History HEENT History: Reports: Impaired Vision Respiratory History: Reports: Asthma, Bronchitis, Recurrent, Pneumonia, Recurrent Genitourinary History: Reports: UTI, Recurrent 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 Bilat knee pain Neurological History: Reports: Concussion, Head Trauma, Migraines Psychiatric History: Reports: Anxiety, Depression, Eating Disorders, Emotional Problems, Learning Disability, Mood Swings, Panic Attack, Suicidal Ideation, Other (See Below) Other Psychiatric History: bulemic Endocrine/Metabolic History: Reports: Obesity/BMI 30+, Other (See Below) Other Endocrine/Metabolic History: Hypoglycemic Hematologic History: Reports: Bleeding Disorder Dermatologic History: Reports: None - Infectious Disease History Infectious Disease History: Reports: Chicken Pox - Past Surgical History HEENT Surgical History: Reports: None Respiratory Surgical History: Reports: None GI Surgical History: Reports: None Female Surgical History: Reports: D&C, Tubal Ligation Neurological Surgical History: Reports: None Social & Family History - Family History Psychiatric: Reports: ADHD - Tobacco Use Smoking Status *Q: Current Every Day Smoker Years of Tobacco use: 25 Packs/Tins Daily: 0.5 Used Tobacco, but Quit: Yes Month Tobacco Last Used: May Second Hand Smoke Exposure: Yes - Caffeine Use Caffeine Use: Reports: Soda - Alcohol Use Days Per Week of Alcohol Use: 0 - Recreational Drug Use Recreational Drug Use: No Drug Use in Last 12 Months: Yes Recreational Drug Type: Reports: Marijuana/Hashish - Living Situation & Occupation Occupation: Disabled (Disabled due to mental and physical condition, lives in [place], [place] with her significant other and 3 children ages 16, 14 and 6 years.) ED ROS GENERAL - Review of Systems Review Of Systems: See Below Constitutional: Reports: Other (Abdominal pain) HEENT: Reports: No Symptoms Respiratory: Reports: No Symptoms Cardiovascular: Reports: No Symptoms Endocrine: Reports: No Symptoms GI/Abdominal: Reports: Abdominal Pain : Reports: No Symptoms Musculoskeletal: Reports: No Symptoms Skin: Reports: No Symptoms Neurological: Reports: No Symptoms Psychiatric: Reports: No Symptoms Hematologic/Lymphatic: Reports: No Symptoms Immunologic: Reports: No Symptoms ED EXAM, GENERAL - Physical Exam Exam: See Below Exam Limited By: No Limitations General Appearance: Alert, WD/WN, No Apparent Distress Eye Exam: Bilateral Eye: Normal Inspection, PERRL Ears: Normal External Exam, Normal Canal, Hearing Grossly Normal, Normal TMs Ear Exam: Bilateral Ear: Auricle Normal, Canal Normal, TM normal Nose: Normal Inspection, Normal Mucosa, No Blood Throat/Mouth: Normal Inspection, Normal Lips, Normal Teeth, Normal Gums, Normal Oropharynx, Normal Voice, No Airway Compromise Head: Atraumatic, Normocephalic Neck: Normal Inspection, Supple, Non-Tender, Full Range of Motion Respiratory/Chest: No Respiratory Distress, Lungs Clear, Normal Breath Sounds, No Accessory Muscle Use, Chest Non-Tender Cardiovascular: Normal Peripheral Pulses, Regular Rate, Rhythm, No Edema, No Gallop, No JVD, No Murmur, No Rub GI/Abdominal: Normal Bowel Sounds, Other (Very obese abdomen with pannus. Pain noted to right upper abdomen with palpation.) (Female) Exam: Deferred Rectal (Female) Exam: Deferred Back Exam: Normal Inspection, Full Range of Motion, NT Extremities: Normal Inspection, Normal Range of Motion, Non-Tender, Normal Capillary Refill, No Pedal Edema Neurological: Alert, Oriented, CN II-XII Intact, Normal Cognition, Normal Gait, Normal Reflexes, No Motor/Sensory Deficits Psychiatric: Normal Affect, Normal Mood Skin Exam: Warm, Dry, Intact, Normal Color, No Rash Lymphatic: No Adenopathy Course - Vital Signs Last Recorded V/S: Last Vital Signs Temp 36.6 C 07/18/17 22:39 Pulse 78 07/18/17 22:39 Resp 16 07/18/17 22:39 BP 149/81 H 07/18/17 22:39 Pulse Ox 98 07/18/17 22:39 - Orders/Labs/Meds Orders: Active Orders 24 hr Category Date Time Status Abdomen Pelvis wo Cont [CT] Stat Exams 07/18/17 22:37 Taken Labs: Laboratory Tests 07/18/17 07/18/17 07/18/17 Range/Units 21:33 21:54 22:40 WBC 9.3 (4.5-11.0) K/uL RBC 4.24 (3.30-5.50) M/uL Hgb 12.9 (12.0-15.0) g/dL Hct 38.9 (36.0-48.0) % MCV 92 (80-98) fL MCH 30 (27-31) pg MCHC 33 (32-36) % Plt Count 336 (150-400) K/uL Neut % (Auto) 66 (36-66) % Lymph % (Auto) 26 (24-44) % [place] % (Auto) 6 (2-6) % Eos % (Auto) 1 L (2-4) % Baso % (Auto) 0 (0-1) % Sodium (140-148) mmol/L Potassium (3.6-5.2) mmol/L Chloride (100-108) mmol/L Carbon Dioxide (21-32) mmol/L Anion Gap (5.0-14.0) mmol/L BUN (7-18) mg/dL Creatinine (0.6-1.0) mg/dL Est Cr Clr Drug Dosing mL/min Estimated GFR (MDRD) (>60) Glucose (74-106) mg/dL Calcium (8.5-10.1) mg/dL Total Bilirubin (0.2-1.0) mg/dL AST (15-37) U/L ALT (12-78) U/L Alkaline Phosphatase (46-116) U/L Total Protein (6.4-8.2) g/dL Albumin (3.4-5.0) g/dL Globulin (2.3-3.5) g/dL Albumin/Globulin Ratio (1.2-2.2) Urine Color Yellow Urine Appearance Clear Urine pH 5.0 (4.5-8.0) Ur Specific [place] 1.015 (1.008-1.030) Urine Protein Negative (NEGATIVE) mg/dL Urine Glucose (UA) Normal (NEGATIVE) mg/dL Urine Ketones Negative (NEGATIVE) mg/dL Urine Occult Blood Negative (NEGATIVE) Urine Nitrite Negative (NEGATIVE) Urine Bilirubin Negative (NEGATIVE) Urine Urobilinogen Normal (NORMAL) mg/dL Ur Leukocyte Esterase Negative (NEGATIVE) Urine RBC Not seen (0-5) Urine WBC 0-5 (0-5) Ur Epithelial Cells Rare Amorphous Sediment Not seen Urine Bacteria Few Urine Mucus Not seen Urine HCG, Qual Negative 07/18/17 Range/Units 22:40 WBC (4.5-11.0) K/uL RBC (3.30-5.50) M/uL Hgb (12.0-15.0) g/dL Hct (36.0-48.0) % MCV (80-98) fL MCH (27-31) pg MCHC (32-36) % Plt Count (150-400) K/uL Neut % (Auto) (36-66) % Lymph % (Auto) (24-44) % [place] % (Auto) (2-6) % Eos % (Auto) (2-4) % Baso % (Auto) (0-1) % Sodium 140 (140-148) mmol/L Potassium 3.2 L (3.6-5.2) mmol/L Chloride 101 (100-108) mmol/L Carbon Dioxide 27 (21-32) mmol/L Anion Gap 15.2 H (5.0-14.0) mmol/L BUN 13 (7-18) mg/dL Creatinine 0.8 (0.6-1.0) mg/dL Est Cr Clr Drug Dosing 68.49 mL/min Estimated GFR (MDRD) > 60 (>60) Glucose 96 (74-106) mg/dL Calcium 8.2 L (8.5-10.1) mg/dL Total Bilirubin 0.3 (0.2-1.0) mg/dL AST 16 (15-37) U/L ALT 24 D (12-78) U/L Alkaline Phosphatase 132 H (46-116) U/L Total Protein 7.5 (6.4-8.2) g/dL Albumin 3.8 (3.4-5.0) g/dL Globulin 3.7 H (2.3-3.5) g/dL Albumin/Globulin Ratio 1.0 L (1.2-2.2) Urine Color Urine Appearance Urine pH (4.5-8.0) Ur Specific [place] (1.008-1.030) Urine Protein (NEGATIVE) mg/dL Urine Glucose (UA) (NEGATIVE) mg/dL Urine Ketones (NEGATIVE) mg/dL Urine Occult Blood (NEGATIVE) Urine Nitrite (NEGATIVE) Urine Bilirubin (NEGATIVE) Urine Urobilinogen (NORMAL) mg/dL Ur Leukocyte Esterase (NEGATIVE) Urine RBC (0-5) Urine WBC (0-5) Ur Epithelial Cells Amorphous Sediment Urine Bacteria Urine Mucus Urine HCG, Qual - Re-Assessments/Exams Free Text/Narrative Re-Assessment/Exam: 07/18/17 23:00 Labs urine with micro negative, hCG, negative, CBC CMP negative as well Imaging: CT abdomen pelvis without contrast: no acute abnormality or of the abdomen or pelvis is noted. Discussed with Hilary and her female friend, all testing lab and x-ray are negative this is a muscle strain advised to rest, take her regular medications as directed follow-up with primary care if not improved. They both agree with plan of care. Departure - Departure Time of Disposition: 23:55 Disposition: Home, Self-Care 01 Condition: Good Clinical Impression: Abdominal muscle strain Qualifiers: Encounter type: initial encounter Qualified Code(s): S39.011A - Strain of muscle, fascia and tendon of abdomen, initial encounter - Discharge Information Instructions: Muscle Strain, [id number] Referrals: PCP,None [Primary Care Provider] - Forms: ED Department Discharge Care Plan Goals: Abdominal wall muscle strain -Prescription Toradol 10 mg every 8 hours as needed for pain dispense #10 -Continue other medications as prescribed -Avoid any lifting bending or twisting for 3 days then increase activity as tolerated Lab and CT scan of abdomen are all negative Follow-up with primary care for recheck if not improved Return to emergency room for any fever greater than 101, chills, nausea, vomiting, or worsening symptoms. - Problem List & Annotations (1) Abdominal muscle strain SNOMED Code(s): 002837704 Code(s): S39.011A - STRAIN OF MUSCLE, FASCIA AND TENDON OF ABDOMEN, INIT ENCNTR Status: Acute Priority: Low Qualifiers: Encounter type: initial encounter Qualified Code(s): S39.011A - Strain of muscle, fascia and tendon of abdomen, initial encounter - Problem List Review Problem List Initiated/Reviewed/Updated: Yes - My Orders Last 24 Hours: My Active Orders 07/18/17 22:37 Abdomen Pelvis wo Cont [CT] Stat - Assessment/Plan Last 24 Hours: My Active Orders 07/18/17 22:37 Abdomen Pelvis wo Cont [CT] Stat Plan: Abdominal wall muscle strain -Prescription Toradol 10 mg every 8 hours as needed for pain dispense #10 -Continue other medications as prescribed -Avoid any lifting bending or twisting for 3 days then increase activity as tolerated Lab and CT scan of abdomen are all negative Follow-up with primary care for recheck if not improved Return to emergency room for any fever greater than 101, chills, nausea, vomiting, or worsening symptoms.
== END 2017-07-18 23:55 | disposition home or self-care (01) ==
LOC: JP.ED 21:08
DX: S39.011A Strain of muscle, fascia and tendon of abdomen, initial encounter (principal); E66.9 Obesity, unspecified; F17.210 Nicotine dependence, cigarettes, uncomplicated; Z88.8 Allergy status to other drugs, medicaments and biological substances; Z79.899 Other long term (current) drug therapy; X58.XXXA Exposure to other specified factors, initial encounter
CPT/HCPCS: 36415; 74176; 80053; 81001; 81025; 85025; 99284

== ENCOUNTER 2021-06-16 07:00 | Inpatient (IN) | payer MEDICAID ==
[2021-07-15] MEDS ORDERED: Acetaminophen 500 MG Tab PO ONE (07:00)
[2021-07-15] MEDS ORDERED: Neostigmine Methylsulfate 1 MG/ML 5 ML Syringe ONE (07:02)
[2021-07-15] MEDS ORDERED: Dexamethasone 4 MG/ML SDV ONE (07:02)
[2021-07-15] MEDS ORDERED: Propofol 200 MG/20 ML SDV ONE (07:02)
[2021-07-15] MEDS ORDERED: Ondansetron 4 MG/2 ML SDV ONE (07:02)
[2021-07-15] MEDS ORDERED: Glycopyrrolate 0.2 MG/ML 5 ML MDV ONE (07:02)
[2021-07-15] MEDS ORDERED: Succinylcholine 200 MG/10 ML MDV ONE (07:02)
[2021-07-15] MEDS ORDERED: Rocuronium 50 MG/5 ML Vial ONE ×2 (07:02→09:39)
[2021-07-15] MEDS ORDERED: fentaNYL 250 MCG/5 ML SDV ONE ×2 (07:04→08:47)
[2021-07-15] MEDS ORDERED: cefOXitin 2 GM Vial ONE (07:19)
[2021-07-15] MEDS ORDERED: Albuterol/Ipratropium 3.0-0.5 MG/3 ML Neb Soln NEB ONE (07:30)
[2021-07-15] MEDS ORDERED: Scopolamine 1.5 MG Transdermal Patch TOP ONE (07:30)
[2021-07-15] MEDS ORDERED: Dextrose 5%-Lactated Ringers 1,000 ML IV SCH ×2 (07:30→13:00)
[2021-07-15] MEDS ORDERED: cefOXitin 2 GM in Sodium Chloride 0.9% 50 ML IV ONE (07:30)
[2021-07-15] MEDS ORDERED: fentaNYL 100 MCG/2 ML SDV ONE (07:56)
[2021-07-15] MEDS: Formoterol/Mometasone 200-5 MCG 8.8 GM Inhaler IH SCH ×2 (08:16→20:42)
[2021-07-15 08:17] LABS: HEMOGLOBIN A1C 6.2 % (4.5-6.2)
[2021-07-15] MEDS ORDERED: Ketamine 500 MG/5 ML MDV IV SCH (08:45)
[2021-07-15] MEDS ORDERED: Ketamine 15 MG in Sodium Chloride 0.9% 19.85 ML IV SCH (08:45)
[2021-07-15] MEDS ORDERED: Naloxone 0.4 MG/ML SDV ONE (10:29)
[2021-07-15] MEDS ORDERED: fentaNYL 100 MCG/2 ML SDV IVPUSH ONE (10:48)
[2021-07-15] MEDS ORDERED: hydrOXYzine HCL 100 MG/2 ML SDV IM ONE (10:49)
[2021-07-15] MEDS ORDERED: Cyclobenzaprine 10 MG Tab PO PRN (12:51)
[2021-07-15] MEDS ORDERED: Metoclopramide 10 MG/2 ML SDV IVPUSH PRN (13:00)
[2021-07-15] MEDS ORDERED: HYDROmorphone 1 MG/ML Syringe IV PRN (13:00)
[2021-07-15] MEDS ORDERED: oxyCODONE 5 MG Tab PO PRN (13:00)
[2021-07-15] MEDS ORDERED: hydrOXYzine HCL 100 MG/2 ML SDV IM PRN (13:00)
[2021-07-15] MEDS ORDERED: traMADol 50 MG Tab PO PRN (13:00)
[2021-07-15] MEDS ORDERED: Ondansetron 4 MG/2 ML SDV IVPUSH PRN (13:00)
[2021-07-15] MEDS ORDERED: Labetalol 20 MG/4 ML Syringe IVPUSH PRN (13:00)
[2021-07-15] MEDS ORDERED: Acetaminophen 500 MG Tab PO PRN (13:00)
[2021-07-15] MEDS ORDERED: diphenhydrAMINE 50 MG/ML SDV IVPUSH PRN (13:00)
[2021-07-15] MEDS ORDERED: Albuterol/Ipratropium 3.0-0.5 MG/3 ML Neb Soln INH PRN (13:00)
[2021-07-15] MEDS ORDERED: ALPRAZolam 0.5 MG Tab PO PRN (13:01)
[2021-07-15] MEDS: Albuterol/Ipratropium 3.0-0.5 MG/3 ML Neb Soln INH SCH ×2 (14:05→20:42)
[2021-07-15] MEDS: Pantoprazole 40 MG Vial IVPUSH SCH (14:18)
[2021-07-15] MEDS: Acetaminophen 500 MG Tab PO SCH ×2 (14:53→21:04)
[2021-07-15] MEDS: cefOXitin 2 GM in Sodium Chloride 0.9% 50 ML IV SCH ×2 (16:34→21:04)
[2021-07-15] MEDS: MVI, Adult with Vitamin K 10 ML, Thiamine 200 MG, Zinc/Copper/Manganese/Selenium 1 ML i... IV SCH ×4 (16:35)
[2021-07-15] MEDS: Heparin Sodium 5,000 Units/ML Vial SUBCUT SCH (17:54)
[2021-07-15] MEDS ORDERED: Heparin Sodium 5,000 Units/ML Vial SUBCUT SCH (20:00)
[2021-07-15] MEDS: rOPINIRole 1 MG Tab PO SCH ×2 (20:42→21:32)
[2021-07-15] MEDS: Montelukast 10 MG Tab PO SCH (20:43)
[2021-07-16] MEDS: HYDROmorphone 0.5 MG/0.5 ML Syringe IVPUSH PRN ×2 (01:02→06:09)
[2021-07-16] MEDS: cefOXitin 2 GM in Sodium Chloride 0.9% 50 ML IV SCH (03:44)
[2021-07-16] MEDS ORDERED: Iopamidol 612 MG/ML 50 ML SDV PO ONE (04:16)
[2021-07-16] MEDS: Acetaminophen 500 MG Tab PO SCH ×2 (06:09→15:32)
[2021-07-16] MEDS: Heparin Sodium 5,000 Units/ML Vial SUBCUT SCH ×2 (06:09→18:28)
[2021-07-16] MEDS: Formoterol/Mometasone 200-5 MCG 8.8 GM Inhaler IH SCH ×2 (07:23→21:45)
[2021-07-16] MEDS: Albuterol/Ipratropium 3.0-0.5 MG/3 ML Neb Soln INH SCH ×4 (07:23→21:47)
[2021-07-16] MEDS: Venlafaxine 75 MG Cap.ER PO SCH (08:48)
[2021-07-16] MEDS: SCOPOLAMINE PATCH CHECK TOP SCH (08:48)
[2021-07-16] MEDS ORDERED: Acetaminophen 160 MG Tab,Disintegrating PO PRN (08:55)
[2021-07-16] MEDS: VYVANSE 60 MG PO SCH (10:38)
[2021-07-16] MEDS: HYDROmorphone 2 MG Tab PO PRN ×3 (11:22→21:54)
[2021-07-16] MEDS: Pantoprazole 40 MG Vial IVPUSH SCH (13:28)
[2021-07-16] MEDS: Acetaminophen 160 MG Tab,Disintegrating PO SCH ×2 (13:30→13:39)
[2021-07-16] MEDS: MVI, Adult with Vitamin K 10 ML, Thiamine 200 MG, Zinc/Copper/Manganese/Selenium 1 ML i... IV SCH ×4 (15:07)
[2021-07-16] MEDS: Dextrose 5%-Lactated Ringers 1,000 ML IV SCH (20:58)
[2021-07-16] MEDS: rOPINIRole 1 MG Tab PO SCH (21:54)
[2021-07-16] MEDS: Montelukast 10 MG Tab PO SCH (21:55)
[2021-07-17] MEDS: Acetaminophen 500 MG Tab PO SCH ×5 (00:33→23:07)
[2021-07-17] MEDS: HYDROmorphone 2 MG Tab PO PRN ×3 (05:02→20:42)
[2021-07-17] MEDS: Heparin Sodium 5,000 Units/ML Vial SUBCUT SCH ×2 (05:03→17:11)
[2021-07-17] MEDS: Formoterol/Mometasone 200-5 MCG 8.8 GM Inhaler IH SCH ×2 (07:34→20:40)
[2021-07-17] MEDS: Albuterol/Ipratropium 3.0-0.5 MG/3 ML Neb Soln INH SCH (07:34)
[2021-07-17] MEDS ORDERED: Cyanocobalamin (Vitamin B12) 1,000 MCG/ML SDV IM ONE (09:00)
[2021-07-17] MEDS: SCOPOLAMINE PATCH CHECK TOP SCH (09:38)
[2021-07-17] MEDS: Bisacodyl 5 MG Tab PO SCH ×2 (09:39→20:40)
[2021-07-17] MEDS: VYVANSE 60 MG PO SCH (09:39)
[2021-07-17] MEDS: Venlafaxine 75 MG Cap.ER PO SCH (09:40)
[2021-07-17] MEDS: Magnesium Hydroxide 400 MG/5 ML Susp 30 ML Cup PO SCH ×2 (09:40→20:41)
[2021-07-17] MEDS ORDERED: Albuterol/Ipratropium 4 GM Inhalation Spray INH SCH (10:00)
[2021-07-17] MEDS: Dextrose 5%-Lactated Ringers 1,000 ML IV SCH ×2 (11:40→23:39)
[2021-07-17] MEDS: Pantoprazole 40 MG Vial IVPUSH SCH (13:10)
[2021-07-17] MEDS: Albuterol/Ipratropium 4 GM Inhalation Spray INH SCH ×2 (14:39→20:41)
[2021-07-17] MEDS: rOPINIRole 1 MG Tab PO SCH (20:41)
[2021-07-17] MEDS: Montelukast 10 MG Tab PO SCH (20:42)
[2021-07-18] MEDS: Heparin Sodium 5,000 Units/ML Vial SUBCUT SCH (06:42)
[2021-07-18] MEDS ORDERED: Hyoscyamine 0.125 MG Tab.SL SL PRN (07:05)
[2021-07-18] MEDS: Albuterol/Ipratropium 4 GM Inhalation Spray INH SCH ×2 (07:05→11:02)
[2021-07-18] MEDS: Formoterol/Mometasone 200-5 MCG 8.8 GM Inhaler IH SCH (07:06)
[2021-07-18] MEDS ORDERED: Lidocaine 2% 30 ML, Alum Hydrox/Mag Hydrox/Simeth 30 ML, diphenhydrAMINE 75 MG PO PRN ×3 (07:07)
[2021-07-18] MEDS: Acetaminophen 500 MG Tab PO SCH (07:20)
[2021-07-18] MEDS: Bisacodyl 5 MG Tab PO SCH (08:28)
[2021-07-18] MEDS: VYVANSE 60 MG PO SCH (08:28)
[2021-07-18] MEDS: Venlafaxine 75 MG Cap.ER PO SCH (08:28)
[2021-07-18 10:23] VITALS: BP 124/80; PULSE 90
== END 2021-07-18 13:31 | disposition home or self-care (01) | DRG 620 ==
LOC: JP.SDSSCHI 07-15 07:00 → JP.SDS 07-15 07:00 → EDSTATUS 07-15 07:30 → JP.MS 07-15 10:30
PROVIDERS: ADMIT Surgery; ATTEND Surgery
PROC: 0DB64Z3 Excision of Stomach, Percutaneous Endoscopic Approach, Vertical (ICD-10-PCS; principal; 2021-07-15)
PROC: 0FB24ZX Excision of Left Lobe Liver, Percutaneous Endoscopic Approach, Diagnostic (ICD-10-PCS; 2021-07-15)
PROC: 0BUT4JZ Supplement Diaphragm with Synthetic Substitute, Percutaneous Endoscopic Approach (ICD-10-PCS; 2021-07-15)
DX: E66.01 Morbid (severe) obesity due to excess calories (principal); F31.81 Bipolar II disorder; Z68.44 Body mass index [BMI] 60.0-69.9, adult; M79.7 Fibromyalgia; M17.0 Bilateral primary osteoarthritis of knee; G25.81 Restless legs syndrome; G47.33 Obstructive sleep apnea (adult) (pediatric); R16.0 Hepatomegaly, not elsewhere classified; K44.9 Diaphragmatic hernia without obstruction or gangrene; J45.20 Mild intermittent asthma, uncomplicated; F41.9 Anxiety disorder, unspecified; K21.9 Gastro-esophageal reflux disease without esophagitis; F90.9 Attention-deficit hyperactivity disorder, unspecified type; B95.62 Methicillin resistant Staphylococcus aureus infection as the cause of diseases classified elsewhere; Z87.891 Personal history of nicotine dependence; Z88.1 Allergy status to other antibiotic agents; Z88.6 Allergy status to analgesic agent; Z88.5 Allergy status to narcotic agent
CPT/HCPCS: 36415; 74240; 80048; 82947; 83036; 83735; 84100; 86850; 86900; 86901; 88307; 88313; 94640; A9270-GY; C1713; C1781; C9113; J0171; J0330; J0694; J1100; J1170; J1644; J2310; J2405; J2704; J2710; J2765; J2795; J3010; J3410; J3411; J3420; J3490; J7121; J7620-GY; Q9967